=== PATIENT | female | born 1965 | race Caucasian/White ===

== ENCOUNTER 2017-06-14 08:49 | Emergency (ER) | payer BC ==
[2017-06-14 09:15] VITALS: BP 118/71
--- NOTE | 2017-07-18 10:18 | UC ---
Complaint Female HPI - HPI Summary HPI Summary: pt p/w c/o increased urinary frequency, pressure and urgency x 2 days. some dysuria. no f/c/n/v/back or abd pain. h/o hematuria. - History Of Current Complaint Chief Complaint: UCGU Stated Complaint: URINARY Time Seen by Provider: 06/14/17 08:54 Hx Obtained From: Patient Hx Last Menstrual Period: DOES NOT HAVE PERIODS. Onset/Duration: Gradual Onset, Lasting Days, Still Present, Worse Since - today Timing: Constant Severity Initially: Moderate Severity Currently: Moderate Pain Intensity: 2 Pain Scale Used: 0-10 Numeric Character: Dull, Burning Aggravating Factor(s): Nothing Alleviating Factor(s): Nothing Associated Signs And Symptoms: Negative: Fever, Back Pain, Vaginal Bleeding/ Discharge, Nausea, Vomiting(# Of Episodes =) - Allergies/Home Medications Allergies/Adverse Reactions: Allergies Allergy/AdvReac Type Severity Reaction Status Date / Time Sulfa Antibiotics Allergy Unknown Verified 06/14/17 08:58 Reaction Details Sulfamethoxazole Allergy Hives Verified 06/14/17 08:58 w/Trimethoprim [From Bactrim] Home Medications: Home Medications Cholecalciferol [D 1000] 1,000 unit PO DAILY 06/14/17 [History Confirmed ] PMH/Surg Hx/FS Hx/Imm Hx Previously Healthy: Yes Psychological History: Anxiety - Surgical History Surgical History: Yes Surgery Procedure, Year, and Place: Laparoscopy-Ovarian cyst removal 1999, Excisional Left breast [id number] - Family History Known Family History: Negative: Cardiac Disease, Diabetes - Social History Occupation: Employed Full-time Lives: With Family Alcohol Use: Rare Substance Use Type: None Smoking Status (MU): Former Smoker Type: Cigarettes Amount Used/How Often: <1/4 PPD Length of Time of Smoking/Using Tobacco: 2 Years Have You Smoked in the Last Year: No When Did the Patient Quit Smoking/Using Tobacco: 1984 - Immunization History Most Recent Influenza Vaccination: Current for Season Review of Systems Constitutional: Negative Skin: Negative ENT: Negative Respiratory: Negative Cardiovascular: Negative Gastrointestinal: Negative Genitourinary: Dysuria, Hematuria, Frequency, Urgency Musculoskeletal: Negative Neurological: Negative All Other Systems Reviewed And Are Negative: Yes Physical Exam Triage Information Reviewed: Yes Appearance: Well-Appearing, No Pain Distress, Well-Nourished Vital Signs: Initial Vital Signs Temp 97.8 F 06/14/17 09:00 Pulse 62 06/14/17 09:00 Resp 16 06/14/17 09:00 BP 118/71 06/14/17 09:00 Pulse Ox 100 06/14/17 09:00 Eyes: Positive: Conjunctiva Clear. Negative: Discharge ENT: Positive: Hearing grossly normal. Negative: Muffled/hoarse voice Neck: Positive: Supple Respiratory: Positive: Lungs clear, Normal breath sounds, No respiratory distress, No accessory muscle use Cardiovascular: Positive: RRR, No Murmur Abdomen Description: Positive: Soft. Negative: Nontender - only suprapubic, CVA Tenderness (R), CVA Tenderness (L), Distended, Guarding, McBurney's Point Tenderness, Peritoneal Signs Bowel Sounds: Positive: Present Musculoskeletal Exam: Normal Neurological: Positive: Alert, Muscle Tone Normal Psychological: Positive: Age Appropriate Behavior Skin Exam: Normal Complaint Female Dx - Course Course Of Treatment: ua positive for nitrates, blood and leukacyte esterase - Differential Dx/Diagnosis Differential Diagnosis/HQI/PQRI: Renal Colic, Urinary Tract Infection Provider Diagnoses: uti Discharge - Discharge Plan Condition: Stable Disposition: HOME Prescriptions: Cephalexin CAP* [Keflex CAP*] 500 mg PO BID #20 cap Patient Education Materials: Urinary Tract Infection in Women (ED), Hematuria ( ED) Referrals: Justin Cannon MD [Primary Care Provider] - (FOLLOW UP IN 2 DAYS IF NOT IMPROVING. ) Additional Instructions: CEPHALEXIN: The antibiotic you've been prescribed is a member of the cephalosporin class. This type of antibiotic covers a wide variety of infections, including those of the skin, lungs, and urinary tract. It's useful for staph infections. This antibiotic is slightly similar to the penicillin family. In rare cases , a person who is allergic to penicillin will also be allergic to this medication. If you have had a severe allergic reaction to penicillin, and have not taken this antibiotic since that time, notify your doctor. Antibiotics which cover many germs ("broad spectrum" antibiotics) are more likely to cause diarrhea or "yeast" infections. Women prone to vaginal yeast problems may suffer an attack after taking this antibiotic. In infants, oral thrush (white spots "stuck" on the cheek) or yeast diaper rash may result. See your doctor if these problems occur. Call at once if you develop itching, hives , shortness of breath, or lightheadedness. ANYTIME YOU TAKE AN ANTIBIOTIC, IT IS IMPORTANT TO REPLENISH THE BODY'D SUPPLY OF "GOOD BACTERIA." YOU CAN GET GOOD BACTERIA FROM HIGH QUALITY CULTURED FOODS SUCH LOCAL YOGURT, SOUR KRAUT, OSKAR SUMMER, NATURALLY FERMENTED PICKLES AND PROBIOTIC DRINKS. YOU CAN ALSO GET GOOD BACTERIA FROM A PROBIOTIC SUPPLEMENT.
== END 2017-06-14 09:39 | disposition home or self-care (01) ==
LOC: UCCORT 08:49
DX: N39.0 Urinary tract infection, site not specified (principal); B96.20 Unspecified Escherichia coli [E. coli] as the cause of diseases classified elsewhere; R31.9 Hematuria, unspecified; Z88.2 Allergy status to sulfonamides; F41.9 Anxiety disorder, unspecified; Z87.891 Personal history of nicotine dependence
CPT/HCPCS: 81003; 87077; 87086; 87186; 99212; G0463

== ENCOUNTER 2020-01-25 15:29 | Emergency (ER) | payer BC ==
[2020-01-25 17:46] VITALS: BP 132/80
--- NOTE | 2020-01-25 18:22 | UC ---
Throat Pain/Nasal [place] HPI - HPI Summary HPI Summary: 54-year-old woman comes in with chief complaint of upper respiratory tract infection symptoms for 6 days. She's been having rhinorrhea postnasal drip nausea cough chest congestion fevers. Rhinorrhea is yellow. Does have sinus pressure.'s been having low-grade fevers every day. No bodyaches. Patient's concerned because she is continuing to have fevers. - History of Current Complaint Chief Complaint: UCGeneralIllness Stated Complaint: FEVER, ST, COUGH Time Seen by Provider: 01/25/20 18:03 Hx Last Menstrual Period: DOES NOT HAVE PERIODS. Pain Intensity: 0 - Allergies/Home Medications Allergies/Adverse Reactions: Allergies Allergy/AdvReac Type Severity Reaction Status Date / Time Sulfa (Sulfonamide AdvReac Unknown Verified 01/25/20 17:47 Antibiotics) Reaction Details sulfamethoxazole AdvReac Hives Verified 01/25/20 17:47 [From Bactrim] trimethoprim [From Bactrim] AdvReac Hives Verified 01/25/20 17:47 Home Medications: Home Medications Atorvastatin* [Lipitor*] 20 mg PO DAILY 03/16/16 [History Confirmed 01/25/20] Methylphenidate HCl [Ritalin LA] 30 mg PO DAILY 03/16/16 [History Confirmed 10/05] Escitalopram Oxalate [Lexapro] 15 mg PO DAILY 09/22/16 [History Confirmed ] DOXYcycline CAP(*) [DOXYcycline 100MG CAP(*)] 100 mg PO BID #20 cap 01/25/20 [Rx ] PMH/Surg Hx/FS Hx/Imm Hx Previously Healthy: Yes Endocrine History: Dyslipidemia - Surgical History Surgical History: Yes Surgery Procedure, Year, and Place: Laparoscopy-Ovarian cyst removal 1999, Excisional Left breast [id number] - Family History Known Family History: Negative: Cardiac Disease, Diabetes - Social History Alcohol Use: None Substance Use Type: None Smoking Status (MU): Former Smoker Type: Cigarettes Amount Used/How Often: <1/4 PPD Length of Time of Smoking/Using Tobacco: 2 Years Have You Smoked in the Last Year: No When Did the Patient Quit Smoking/Using Tobacco: 1984 - Immunization History Most Recent Influenza Vaccination: Current for Season Review of Systems All Other Systems Reviewed And Are Negative: Yes Constitutional: Positive: Fever, Other - SEE HPI Skin: Positive: Negative Eyes: Positive: Negative ENT: Positive: Sore Throat, Nasal Discharge, Sinus Congestion, Sinus Pain/ Tenderness Respiratory: Positive: Cough, Other - SEE HPI Cardiovascular: Positive: Negative Gastrointestinal: Positive: Nausea Motor: Positive: Negative Neurovascular: Positive: Negative Musculoskeletal: Positive: Negative Neurological/Mental Status: Positive: Negative Psychological: Positive: Negative Is Patient Immunocompromised?: No Physical Exam Triage Information Reviewed: Yes Appearance: No Pain Distress, Well-Nourished, Ill-Appearing - MILD Vital Signs: Initial Vital Signs Temp 98.4 F 01/25/20 17:44 Pulse 75 01/25/20 17:44 Resp 18 01/25/20 17:44 BP 132/80 01/25/20 17:44 Pulse Ox 98 01/25/20 17:44 Vital Signs Reviewed: Yes Eye Exam: Normal Eyes: Positive: Conjunctiva Clear ENT: Positive: Pharynx normal, Nasal congestion, Nasal drainage, TMs normal Neck: Positive: Supple Respiratory: Positive: Lungs clear, Normal breath sounds, No respiratory distress Cardiovascular: Positive: RRR Musculoskeletal: Positive: Strength Intact, ROM Intact Neurological: Positive: Alert, Muscle Tone Normal Psychological: Positive: Age Appropriate Behavior Skin Exam: Normal Throat Pain/Nasal Course/Dx - Course Course Of Treatment: DISCUSSED VIRAL VERSES BACTERIAL INFECTIONS AND THE ROLE OF ANTIBIOTICS. THE PATIENT PREFERS TO HAVE ANTIBIOTICS TO START IF NOT IMPROVING AT THIS TIME. - Differential Dx/Diagnosis Provider Diagnosis: Sinusitis, Bronchitis Discharge ED - Sign-Out/Discharge Documenting (check all that apply): Patient Departure All imaging exams completed and their final reports reviewed: No Studies - Discharge Plan Condition: Stable Disposition: HOME Prescriptions: DOXYcycline CAP(*) [DOXYcycline 100MG CAP(*)] 100 mg PO BID #20 cap Patient Education Materials: Sinusitis (ED), Acute Bronchitis (ED) Referrals: Estrella Avilez PA [Primary Care Provider] - Additional Instructions: FOLLOW UP WITH YOUR DOCTOR IF NOT COMPLETELY IMPROVED. GET REEVALUATED SOONER IF NOT IMPROVED OR WORSE OR ANY QUESTIONS OR CONCERNS. - Billing Disposition and Condition Condition: STABLE Disposition: Home
== END 2020-01-25 18:33 | disposition home or self-care (01) ==
LOC: UCCORT 15:29
DX: J40 Bronchitis, not specified as acute or chronic (principal); J32.9 Chronic sinusitis, unspecified; R11.0 Nausea; E78.5 Hyperlipidemia, unspecified; Z88.2 Allergy status to sulfonamides; Z79.899 Other long term (current) drug therapy; Z87.891 Personal history of nicotine dependence
CPT/HCPCS: 99212; G0463